=== PATIENT | male | born 1945 | race Native Hawaiian/Other Pacific Islander ===

== ENCOUNTER 2016-11-23 09:18 | Day surgery (SDC) | payer OTHER | END 2016-11-23 11:45 | disposition home or self-care (01) | LOC: OR 09:18 | PROC: 08RK3JZ Replacement of Left Lens with Synthetic Substitute, Percutaneous Approach (ICD-10-PCS; principal; 2016-11-23) | PROC: 089330Z Drainage of Left Anterior Chamber with Drainage Device, Percutaneous Approach (ICD-10-PCS; 2016-11-23) | DX: H25.812 Combined forms of age-related cataract, left eye (principal); H40.1132 Primary open-angle glaucoma, bilateral, moderate stage | CPT/HCPCS: 0191T; 66984; V2632 ==